=== PATIENT | female | born 1995 | race Caucasian/White ===

== ENCOUNTER 2024-12-11 21:35 | Emergency (ER) | payer SELFPAY ==
[2024-12-11 21:36] VITALS: BP 127/82; PULSE 85; RESP 14; TEMP 36.6; O2SAT 98; BMI 37.8
--- NOTE | 2024-12-11 22:37 | US_ITS ---
PROCEDURE: GALLBLADDER 12/11/2024 REASON FOR EXAM: RUQPAIN COMPARISON: None FINDINGS: Liver: Mildly diffusely echogenic suggesting fatty infiltration. Slightly enlarged measuring 18.4 cm. Gallbladder: No stones, sludge, wall thickening or tenderness. Common bile duct: Normal measuring 4 mm. Pancreas: Obscured by bowel gas. Other: Visualized portions of the right kidney are unremarkable. No right upper quadrant ascites. US/Gallbladder IMPRESSION: 1. No cholelithiasis or evidence of acute cholecystitis. 2. Mild hepatomegaly and hepatic steatosis. Reading Location: [id number]
[2024-12-11] MEDS: 0.9% Normal Saline (1000mL) 1,000 ML 999 ML IV (22:52)
[2024-12-11 23:01] LABS: Mucous, Urine 0 SEEN /hpf (<or=2+)
[2024-12-11 23:03] LABS: Hematocrit 39.5 % (37-47); Hemoglobin 13.1 g/dL (12.0-15.0); Immature Granulocytes Count 0.040 X10^3/uL (0.0-0.0); Mean Corp Hgb Conc 33.2 g/dL (32-36); Mean Corpuscular Volume 89.0 fL (81-99); Mean Platelet Vol. 10.7 fl (6.2-12.0); NRBC Flagged by Analyzer 0 % (0-5); Platelet Count 224 K/mm3 (150-450); RBC Distribution Width CV 11.9 % (11.6-14.6); RBC Distribution Width SD 38.2 fl (35.1-43.9); Red Blood Count 4.44 M/mm3 (4.2-5.4); White Blood Count 9.4 K/mm3 (4.4-11.0)
[2024-12-11 23:06] LABS: Color, Urine Yellow (Yellow); Glucose, Dipstick Normal (Normal); Ketone-Dipstick Negative (Negative); Leukocyte Esterase-Dipstick Negative /ul (Negative); Nitrite-Dipstick Negative (Negative); Occult Blood-Urine Negative /ul (Negative); Protein-Dipstick Negative (Negative); Specific Gravity, Urine 1.010 (1.002-1.030); Urine Bilirubin Dipstick Negative (Negative)
[2024-12-11 23:10] LABS: Internal QC Validated? YES +Cl - CLEAR BKGD; Pregnancy, Urine Negative Negative
[2024-12-11 23:11] LABS: Record Kit Lot#,Urine Preg 947241
[2024-12-11 23:12] LABS: Prothrombin Time (Protime)PT. 12.9 SECONDS (11.7-14.9)
[2024-12-11 23:13] LABS: Partial Thromboplast Time 27.7 Seconds (24.1-36.2)
[2024-12-11 23:31] LABS: Red Blood Cells-Urine 0-5 SEEN /hpf (0-5)
[2024-12-11 23:32] LABS: Squamous Epithelial Cells - UA 0-5 SEEN /hpf (5-10); Transitional Epithelial - Ur 0-5 SEEN /hpf (0-5)
[2024-12-11 23:36] VITALS: BP 122/85; PULSE 81; RESP 16; O2SAT 100
[2024-12-11 23:40] LABS: AST(SGOT) 20 U/L (<=31); Alanine Aminotransfer ALT/SGPT 13 U/L (<=34); Albumin, Serum 4.0 g/dL (3.5-5.0); Alkaline Phosphatase 103 U/L (35-104); Anion Gap 11 (5-15); BUN 12 mg/dL (4-19); BUN/Creat Ratio 18.4 RATIO (10-20); Bilirubin, Direct 0.10 mg/dL (0.00-0.30); Calcium,Total 9.3 mg/dL (7.6-11.0); Carbon Dioxide 23.1 mmol/L (21.0-32.0); Chloride 104 mmol/L (98-108); Estimated Creatinine Clearance 124.87 ml/min (50-250); Globulin 3.0 g/dL (2.2-4.2); Glucose 89 mg/dL (70-99); Lipase 32 U/L (13-75); Magnesium 1.9 mg/dL (1.5-2.2); Potassium 3.8 mmol/L (3.3-5.1)
--- NOTE | 2024-12-12 00:18 | EX.ED.DYSGE1 ---
HPI History of Present Illness Chief Complaint: Abd Pain Informant: patient and spouse/S.O. Narrative Narrative: Patient is a 29-year-old female who reports no significant past medical history. She states she has been having pain in the right upper quadrant/midepigastric region for the past few days. She states that she cannot associate it with eating. She reports nausea associated with the symptoms but denies any vomiting. She states there has been no constipation or diarrhea or change in bowel habits. She denies any concern for . She states she has been taking [id number] medication but symptoms have persisted and secondary to this she comes in for evaluation. [facility] Home Medications ?Medication ?Instructions ?Recorded ?Last Taken ?Type ondansetron 4 mg disintegrating 4 mg PO TID PRN nausea and 12/12/24 Unknown Rx tablet vomiting #21 tabs oxycodone-acetaminophen 5 mg-325 1 tab PO Q6H PRN pain 3 days #12 12/12/24 Unknown Rx mg tablet (Percocet) tabs polyethylene glycol 3350 17 17 g PO BID 10 days #340 grams 12/12/24 Unknown Rx gram/dose oral powder (Miralax) Allergy/AdvReac Type Severity Reaction Status Date / Time Fish Containing Products Allergy Anaphylaxis Verified 12/11/24 21:36 (seafood) morphine Allergy SWELLING Verified 12/11/24 21:37 Social History Smoking Status: Never smoker ROS ROS ED Constitutional Constitutional ED: Denies chills or fever(s) Eyes Eyes: Denies change in vision ENT ENT ED: Denies sore throat Cardiovascular Cardiovascular: Denies chest pain Respiratory/Chest Respiratory/Chest: Denies cough or dyspnea Gastrointestinal Gastrointestinal: Reports abdominal pain and nausea; Denies constipation, diarrhea or vomiting Genitourinary Genitourinary ED: Denies dysuria or hematuria Musculoskeletal Musculoskeletal: Denies back pain or myalgias Integumentary Denies rash Neurologic Neurologic: Denies headache(s) Hematologic/Lymphatic Hematologic/Lymphatic: Denies easy bleeding or easy bruising EXAM Physical Exam Const Vital Signs: 12/11/24 21:36 12/11/24 23:36 Temperature 98 F Temperature Source Temporal Pulse Rate 85 81 Respiratory Rate 14 16 Blood Pressure 127/82 H 122/85 H Blood Pressure Mean 97 97 Pulse Ox 98 100 Oxygen Delivery Method Room Air Positive well nourished, well developed and obese General Appearance ED: well developed; Negative for pallor Nutritional Appearance: obese HEENT Reports moist mucous membranes HEENT Narrative: Normocephalic atraumatic No tongue or lip swelling no oral lesions no airway edema or compromise No secondary findings in the posterior pharynx to suggest infection Eyes PERRL and EOMs intact bilaterally General Eye ED: Negative for scleral icterus Neck supple and no JVD Resp normal respiratory effort and clear to auscultation bilaterally Cardio regular rate and regular rhythm Rate: other Other Details: Heart is regular rate and rhythm without murmurs rubs or gallops Radial and carotid pulses are equal and symmetric GI non-distended and no masses GI Narrative: Soft and nondistended with normal active bowel sounds There is pain with palpation in the midepigastric and right upper quadrant region without voluntary guarding or rigidity or pulsatile mass Negative Loo sign Auscultation: normoactive bowel sounds Palpation: soft Back/Spine no CVA tenderness Extremity normal to inspection Extremity Narrative: No asymmetric edema no pitting edema negative Homans' sign bilaterally Neuro oriented x3, CN's II-XII intact bilaterally and no sensory deficits noted Sensorium / Orientation: alert Motor Exam: strength 5/5 throughout Psych mental status grossly normal Skin no rashes or lesions noted and no wounds General Skin Exam: Negative for jaundice or pallor MDM MDM MDM Narrative Medical decision making narrative: Patient arrived to the ER with stable vitals but reported pain in the upper mid abdomen in the right upper quadrant. Loo sign was negative but with pain in these regions there is concern for biliary colic versus acute cholecystitis versus pancreatitis. Secondary to this basic labs were obtained as well as an ultrasound of the right upper quadrant. Lipase is normal going against a pancreatitis. Urine test is negative going as a complication and white count and liver enzymes are normal going against acute cholecystitis. Moreover the ultrasound of the gallbladder revealed no gallstones or signs of wall thickening or pericholecystic fluid. On reevaluation she had improvement of symptoms with provided medication. Abdomen remains soft and nonsurgical. Therefore this time with normal imaging as well as normal laboratory studies and improvement of abdominal discomfort there is no need for further inpatient evaluation she is otherwise safe for discharge with outpatient follow-up. History & Record Review Discussion w/independent historian: Patient and Significant other Lab Data Attestation: I reviewed the patient's lab results. Labs: Laboratory Results - last 24 hr 12/11/24 22:57 WBC 9.4 RBC 4.44 Hgb 13.1 Hct 39.5 MCV 89.0 MCH 29.5 MCHC 33.2 RDW Std Deviation 38.2 RDW Coeff of Mamadou 11.9 Plt Count 224 MPV 10.7 Immature Gran % (Auto) 0.400 Neut % (Auto) 53.2 Lymph % (Auto) 34.1 [place] % (Auto) 7.0 Eos % (Auto) 5.1 H Baso % (Auto) 0.2 Absolute Neuts (auto) 5.0 Absolute Lymphs (auto) 3.22 Nucleated RBC % 0 PT 12.9 INR 1.0 APTT 27.7 Sodium 138 Potassium 3.8 Chloride 104 Carbon Dioxide 23.1 Anion Gap 11 BUN 12 Creatinine 0.65 L Estim Creat Clear Calc 124.87 Est GFR (MDRD) Non-Af 121 BUN/Creatinine Ratio 18.4 Glucose 89 Calcium 9.3 Magnesium 1.9 Total Bilirubin 0.23 Direct Bilirubin 0.10 AST 20 ALT 13 Alkaline Phosphatase 103 Total Protein 7.1 Albumin 4.0 Globulin 3.0 Lipase 32 Urine Color Yellow Urine Clarity Clear Urine pH 6.5 Ur Specific [place] 1.010 Urine Protein Negative Urine Glucose (UA) Normal Urine Ketones Negative Urine Occult Blood Negative Urine Nitrite Negative Urine Bilirubin Negative Urine Urobilinogen Normal Ur Leukocyte Esterase Negative Urine RBC 0-5 SEEN Urine WBC 0-5 SEEN Ur Squamous Epith Cells 0-5 SEEN Ur Transition Epith Cell 0-5 SEEN Urine Bacteria 0 SEEN Urine Mucus 0 SEEN Urine Test Negative Radiography Diagnostic Testing: Clinical Impression(s) from Imaging Studies Gallbladder Ultrasound 12/11/24 22:37 IMPRESSION: 1. No cholelithiasis or evidence of acute cholecystitis. 2. Mild hepatomegaly and hepatic steatosis. Reading Location: [facility] Discharge Plan Triage Chief Complaint: Abd Pain ED Provider: Jay Shin Dx/Rx/DC Orders Clinical Impression: Nonspecific abdominal pain Instructions: Abdominal Pain Prescriptions: New ondansetron 4 mg tablet,disintegrating 4 mg PO TID PRN (Reason: nausea and vomiting) Qty: 21 0RF oxycodone-acetaminophen [Percocet] 5-325 mg tablet 1 tab PO Q6H PRN (Reason: pain) 3 Days Qty: 12 0RF polyethylene glycol 3350 [Miralax] 17 gram/dose powder 17 g PO BID 10 Days Qty: 340 0RF Activity Restrictions/Additional Instructions: Your workup today revealed no signs of pancreatitis or gallstones or gallbladder infection. However your symptoms could still be from gallbladder dysfunction. Follow-up with your family doctor and discuss obtaining an outpatient HIDA scan to further assess this. Take the MiraLAX twice a day as directed until you have loose/watery stool because of your constipation and return to the ER should you have any further concerns Print Language: Ken[place] Disposition Disposition: Home, Self Care Discharge Date/Time: 12/12/24 00:38
[2024-12-12 00:38] VITALS: BP 119/93; PULSE 75; RESP 16; TEMP 36.6; O2SAT 100
== END 2024-12-12 00:38 | disposition home or self-care (01) ==
PROVIDERS: Emergency Provider Emergency Medicine; Visit Provider Emergency Medicine
DX: R10.9 Unspecified abdominal pain (principal); E66.9 Obesity, unspecified
CPT/HCPCS: 76705; 80048; 80076; 81001; 81025; 83690; 83735; 85025; 85610; 85730; 96374; 96375; 99283; A4216; J2405